=== PATIENT | male | born 1930 | race Caucasian/White ===

== ENCOUNTER 2020-07-08 21:15 | Emergency (ER) | payer MEDICARE ==
[~2020-07-08] VITALS: Ht 170.2 cm; Wt 63.5 kg
[2020-07-08 21:27] VITALS: BP 141/85
--- NOTE | 2020-07-08 21:38 | NUR ---
, HAKEEM: [phone]
--- NOTE | 2020-07-08 22:32 | NUR ---
PATIENT RETURNED FROM CT.
--- NOTE | 2020-07-08 23:37 | NUR ---
Patient discharged to home in stable condition. Written and verbal after care instructions given. Patient verbalizes understanding of instruction.
--- NOTE | 2020-07-08 23:37 | NUR ---
ambulatory with a steady gait. Patient is picked up by .
== END 2020-07-08 23:49 | disposition home or self-care (01) ==
LOC: ER 21:17
DX: S01.112A Laceration without foreign body of left eyelid and periocular area, initial encounter (principal); S09.8XXA Other specified injuries of head, initial encounter; G30.9 Alzheimer's disease, unspecified; F02.80 Dementia in other diseases classified elsewhere, unspecified severity, without behavioral disturbance, psychotic disturbance, mood disturbance, and anxiety; Z98.890 Other specified postprocedural states; W01.0XXA Fall on same level from slipping, tripping and stumbling without subsequent striking against object, initial encounter; Y93.89 Activity, other specified; Y92.89 Other specified places as the place of occurrence of the external cause; Y99.8 Other external cause status
CPT/HCPCS: 70450-TC; 70486-TC; 72125-TC